=== PATIENT | female | born 1960 | race Caucasian/White ===

== ENCOUNTER 2019-09-09 11:55 | Outpatient (CLI) | payer MEDICAID | END 2019-09-09 23:59 | disposition home or self-care (01) | LOC: LAB.R 11:55 | PROVIDERS: ATTEND Physician Assistant Medical | DX: R10.9 Unspecified abdominal pain (principal) | CPT/HCPCS: 87086 ==

== ENCOUNTER 2019-09-19 07:36 | Outpatient (CLI) | payer MEDICAID ==
[2019-09-19 07:53] LABS: BASOPHILS % (AUTO) 0.6 %; EOSINOPHILS % (AUTO) 0.6 %; HGB - HEMOGLOBIN 15.3 g/dL (12.0-16.0); LYMPHOCYTES # (AUTO) 2.2 10^3/uL (1.5-3.5); LYMPHOCYTES % (AUTO) 35.3 %; MEAN CORPUSCULAR HGB CONC 32.9 g/dL (32.0-36.0); MEAN CORPUSCULAR VOLUME 88.1 fL (81.0-99.0); MEAN PLATELET VOLUME 9.5 fL (7.9-10.8); MONOCYTES # (AUTO) 0.4 10^3/uL (0.0-1.0); NEUTROPHILS # (AUTO) 3.5 10^3/uL (1.5-6.6); PLT - PLATELET COUNT 230 10^3/uL (130-450); RED BLOOD COUNT 5.28 10^6/uL (4.20-5.40); RED CELL DISTRIBUTION WIDTH 12.9 % (12.0-15.0); WHITE BLOOD COUNT 6.3 x10^3/uL (4.8-10.8)
[2019-09-19 08:09] LABS: ALBUMIN 4.6 g/dL (3.2-5.5); ALBUMIN/GLOBULIN RATIO 1.3 (1.0-2.2); ALKALINE PHOSPHATASE 61 IU/L (42-121); ALT ALANINE AMINOTRANSFERASE 60 IU/L (10-60); AST ASPARTATE AMINOTRANSFERASE 39 IU/L (10-42); BUN - BLOOD UREA NITROGEN 15 mg/dL (6-20); CALCIUM 9.4 mg/dL (8.5-10.3); CARBON DIOXIDE - CO2 27 mmol/L (21-32); CHLORIDE 102 mmol/L (101-111); CHOL/HDL RATIO 5.9 (<4.4); CHOLESTEROL 321 mg/dL; CREATININE 0.7 mg/dL (0.4-1.0); GLUCOSE 104 mg/dL (70-100); HDL CHOLESTEROL 54 mg/dL; LDL CHOLESTEROL,CALCULATED 221 mg/dL; LDL/HDL RATIO 4.1 (<4.4); SODIUM 136 mmol/L (135-145); TOTAL PROTEIN 8.2 g/dL (6.7-8.2); VLDL CHOLESTEROL 46 mg/dL
== END 2019-09-19 07:37 | disposition home or self-care (01) ==
LOC: LAB 07:36
PROVIDERS: ATTEND Physician Assistant Medical
DX: Z00.00 Encounter for general adult medical examination without abnormal findings (principal); E78.2 Mixed hyperlipidemia; R10.9 Unspecified abdominal pain
CPT/HCPCS: 36415; 80053; 80061; 83721; 84443; 85025; 87086

== ENCOUNTER 2019-09-27 09:39 | Outpatient (CLI) | payer MEDICAID ==
--- NOTE | 2019-09-28 16:00 | Ultrasound Report ---
Reason: DYSPHAGIA Procedure Date: 09/27/2019 Accession Number: [id number] / [id number] Procedure: US - Head or Neck Soft Tissue CPT Code: Final Report FULL RESULT: EXAM: THYROID ULTRASOUND EXAM DATE: 09/27/2019 09:41 AM. CLINICAL HISTORY: Dysphagia. Thyroid nodules. COMPARISON: HEAD OR NECK SOFT TISSUE 11/19/2015 3:59 PM. TECHNIQUE: Real time sonographic imaging of the thyroid was performed by the timber deadener. Multiple procurement representative static images were saved for review. FINDINGS: THYROID GLAND: Right Lobe: 4.6 x 1.2 x 1.4 cm, volume 4.0 cc. Right lobe echotexture appears heterogeneous with normal vascularity. Right Lobe Nodules: There are two 5 mm diameter well-circumscribed hypoechogenic foci one in the right upper pole and the other in the right lower pole, without hypervascularity or microcalcification. Left Lobe: 4.1 x 1.0 x 1.4 cm, volume 4.0 cc. Heterogeneous echotexture with normal vascularity. Left Lobe Nodules: There is a 6 mm left upper pole nodule which appears hypoechogenic and well-circumscribed. Isthmus: 0.5 cm AP. Normal background echotexture. Isthmic Nodules: None. LYMPH NODES: No adenopathy demonstrated in the central or lateral compartment. OTHER: There are slightly enlarged bilateral submandibular lymph nodes. IMPRESSION: 1. Nonspecific, small hypoechogenic nodules in the right and left lobes of the thyroid gland. 2. Mildly heterogeneous echotexture. Management recommendations are based on 2015 [place] [employer] Management Guidelines for Adult Patients with Thyroid Nodules and Differentiated Thyroid Cancer. RADIA
== END 2019-09-27 09:40 | disposition home or self-care (01) ==
LOC: DI 09:39
PROVIDERS: ATTEND Physician Assistant Medical
DX: E04.2 Nontoxic multinodular goiter (principal)
CPT/HCPCS: 76536

== ENCOUNTER 2019-10-07 08:00 | Outpatient (CLI) | payer MEDICAID | END 2019-10-07 23:59 | disposition home or self-care (01) | LOC: LAB.R 08:00 | PROVIDERS: ATTEND Physician Assistant Medical | DX: R10.9 Unspecified abdominal pain (principal) | CPT/HCPCS: 87086 ==

== ENCOUNTER 2019-11-22 15:19 | Outpatient (CLI) | payer MEDICAID ==
--- NOTE | 2019-11-22 17:12 | DEXA Report ---
Reason: POST MENOPAUSAL, R FLANK PAIN Procedure Date: 11/22/2019 Accession Number: [id number] / [id number] Procedure: DEX - Dexa Spine and/or Hip CPT Code: Final Report FULL RESULT: PROCEDURE: Dexa Spine and/or Hip INDICATIONS: POST MENOPAUSAL, R FLANK PAIN TECHNIQUE: Dual energy x-ray absorptiometry (DXA) was performed on a Edu[employer] System. Regions measured are the AP Spine, femoral neck, and if needed forearm. COMPARISON: None. FINDINGS: Lumbar Spine: Bone Mineral Density 1.247 g/cm/cm,T score 0.6, normal Left Hip: Bone Mineral Density 0.955 g/cm/cm,T score -0.4, normal Left Femoral Neck: Bone Mineral Density 0.982 g/cm/cm, T score -0.4, normal (T score greater or equal to -1.0: NORMAL) (T score from -1.1 to -2.4: OSTEOPENIA) (T score less than or equal to -2.5 to: OSTEOPOROSIS) Impression: 1. Normal bone mineral density. 2. No elevated fracture risk. Patients with diagnosis of osteoporosis or osteopenia should have regular bone mineral density assessment. For those eligible for Medicare, routine testing is allowed once every 2 years. Testing frequency can be increased for patients who have rapidly progressing disease or for those who are receiving medical therapy to restore bone mass. Reviewed by: Enedina Santiago MD on 11/22/2019 5:10 PM PDT Approved by: Enedina Santiago MD on 11/22/2019 5:10 PM PDT Station ID: [id number]
--- NOTE | 2019-11-22 17:28 | Ultrasound Report ---
PROCEDURE: Retroperitoneal INDICATIONS: POST MENOPAUSAL, R FLANK PAIN TECHNIQUE: Real-time scanning was performed of the retroperitoneal organs, with image documentation. COMPARISON: None. FINDINGS: Kidneys: Kidneys are normal in size. Right kidney measures 11.0 cm long; left kidney measures 10.3 cm long. Right renal cortical thickness is 1.1 cm; left renal cortical thickness is 1.0 cm. No diana d masses, hydronephrosis, or nephrolithiasis. Bilateral simple renal cysts are identified the larges t on the right measuring 15 x 15 x 13 mm, the largest on the left measuring 10 x 10 x 10 mm. Bladder: Prevoid volume 30 9 cc. Postvoid residual 22 cc. Bilateral ureteral jets are identified. No visualized bladder mass. IMPRESSION: No visualized nephrolithiasis. Bilateral renal cysts are noted. Reviewed by: Lilliana Middleton MD on 11/22/2019 5:27 PM PDT Approved by: Lilliana Middleton MD on 11/22/2019 5:27 PM PDT Station ID: [id number]
== END 2019-11-22 15:20 | disposition home or self-care (01) ==
LOC: DI 15:19
PROVIDERS: ATTEND Physician Assistant Medical
DX: Z78.0 Asymptomatic menopausal state (principal); R10.9 Unspecified abdominal pain; N28.1 Cyst of kidney, acquired
CPT/HCPCS: 76770; 77080

== ENCOUNTER 2020-01-10 10:37 | Outpatient (CLI) | payer MEDICAID ==
[2020-01-10 11:08] LABS: ALBUMIN 4.5 g/dL (3.2-5.5); ALBUMIN/GLOBULIN RATIO 1.3 (1.0-2.2); ALKALINE PHOSPHATASE 66 IU/L (42-121); ALT ALANINE AMINOTRANSFERASE 53 IU/L (10-60); AST ASPARTATE AMINOTRANSFERASE 39 IU/L (10-42); BILIRUBIN,TOTAL 0.6 mg/dL (0.2-1.0); BUN - BLOOD UREA NITROGEN 19 mg/dL (6-20); CALCIUM 9.2 mg/dL (8.5-10.3); CARBON DIOXIDE - CO2 29 mmol/L (21-32); CHLORIDE 99 mmol/L (101-111); CHOL/HDL RATIO 4.2 (<4.4); CHOLESTEROL 237 mg/dL; CREATININE 0.7 mg/dL (0.4-1.0); GLUCOSE 100 mg/dL (70-100); HDL CHOLESTEROL 57 mg/dL; LDL CHOLESTEROL,CALCULATED 151 mg/dL; LDL/HDL RATIO 2.6 (<4.4); SODIUM 134 mmol/L (135-145); VLDL CHOLESTEROL 29 mg/dL
== END 2020-01-10 10:38 | disposition home or self-care (01) ==
LOC: LAB 10:37
PROVIDERS: ATTEND Physician Assistant Medical
DX: E78.2 Mixed hyperlipidemia (principal)
CPT/HCPCS: 36415; 80053; 80061; 83721

== ENCOUNTER 2020-02-17 08:00 | Outpatient (CLI) | payer MEDICAID ==
--- NOTE | 2020-02-18 17:05 | XRAY Report ---
PROCEDURE: Sacrum/Coccyx INDICATIONS: TAILBONE PAIN TECHNIQUE: 3 views of the sacrum and coccyx acquired. COMPARISON: None. FINDINGS: Bones: No fractures or dislocations. No suspicious bony lesions. Soft tissues: Visualized bowel gas pattern is normal. No suspicious soft tissue densities. IMPRESSION: Sacrum/coccyx without acute radiographic abnormalities. Reviewed by: Dalton Montana MD on 02/18/2020 5:04 PM PDT Approved by: Dalton Montana MD on 02/18/2020 5:04 PM PDT Station ID: [id number]
== END 2020-02-17 23:59 | disposition home or self-care (01) ==
LOC: DI.S 08:00
PROVIDERS: ATTEND Physician Assistant Medical
DX: M53.3 Sacrococcygeal disorders, not elsewhere classified (principal)
CPT/HCPCS: 72220

== ENCOUNTER 2020-04-09 21:21 | Outpatient (CLI) | payer MEDICAID | END 2020-04-09 21:22 | disposition home or self-care (01) | LOC: COV 21:21 | PROVIDERS: ATTEND Surgery | DX: Z01.812 Encounter for preprocedural laboratory examination (principal); Z86.010 Personal history of colon polyps; R09.89 Other specified symptoms and signs involving the circulatory and respiratory systems; Z20.828 Contact with and (suspected) exposure to other viral communicable diseases ==

== ENCOUNTER 2020-04-13 11:12 | Day surgery (SDC) | payer MEDICAID ==
[2020-04-13] MEDS ORDERED: LACTATED RINGERS 1,000 ML IV ONE (11:18)
[2020-04-13] MEDS ORDERED: LIDO GARGLE 30 ML BOTTLE ONE (12:53)
[2020-04-13] MEDS ORDERED: BENZOCAINE/TETRACAINE/BUTAMBEN 20 GM ONE (12:53)
[2020-04-13] MEDS ORDERED: LIDO GARGLE 30 ML BOTTLE PO ONE (12:57)
[2020-04-13] MEDS ORDERED: BENZOCAINE/TETRACAINE/BUTAMBEN 20 GM TOP ONE (12:59)
[2020-04-13] MEDS ORDERED: fentaNYL 250 MCG/5 ML VIAL IVP ONE (13:03)
[2020-04-13] MEDS ORDERED: MIDAZOLAM 2 MG/2 ML VIAL IVP ONE (13:03)
[2020-04-13] MEDS ORDERED: LACTATED RINGERS 100 ML IV ONE (14:00)
[2020-04-13 14:53] VITALS: BP 119/76
== END 2020-04-13 11:13 | disposition home or self-care (01) ==
LOC: SDS 11:12
PROVIDERS: ATTEND Internal Medicine Gastroenterology
PROC: 0DBC8ZZ Excision of Ileocecal Valve, Via Natural or Artificial Opening Endoscopic (ICD-10-PCS; principal; 2020-04-13 12:15)
PROC: 0DB98ZZ Excision of Duodenum, Via Natural or Artificial Opening Endoscopic (ICD-10-PCS; 2020-04-13 12:15)
DX: Z12.11 Encounter for screening for malignant neoplasm of colon (principal); R13.10 Dysphagia, unspecified; K31.7 Polyp of stomach and duodenum; K63.89 Other specified diseases of intestine; K62.89 Other specified diseases of anus and rectum; E78.00 Pure hypercholesterolemia, unspecified; B00.9 Herpesviral infection, unspecified; Z86.010 Personal history of colon polyps; Z79.82 Long term (current) use of aspirin; Z79.899 Other long term (current) drug therapy

== ENCOUNTER 2020-05-04 07:00 | Outpatient (CLI) | payer MEDICAID | END 2020-05-04 23:59 | disposition home or self-care (01) | LOC: LAB.R 07:00 | PROVIDERS: ATTEND Physician Assistant Medical | DX: R39.15 Urgency of urination (principal) | CPT/HCPCS: 87086 ==

== ENCOUNTER 2020-05-28 08:00 | Outpatient (CLI) | payer MEDICAID | END 2020-05-28 23:59 | disposition home or self-care (01) | LOC: LAB.R 08:00 | PROVIDERS: ATTEND Physician Assistant Medical | DX: N39.0 Urinary tract infection, site not specified (principal) | CPT/HCPCS: 87086 ==

== ENCOUNTER 2020-07-21 15:06 | Outpatient (CLI) | payer MEDICAID ==
--- NOTE | 2020-07-21 16:53 | XRAY Report ---
PROCEDURE: Knee Standing BILAT INDICATIONS: KNEE PAIN,BILATERAL (STANDING) TECHNIQUE: 3 views of the right knee, and 3 views of the left knee. COMPARISON: None. FINDINGS: Bones: No acute fractures or dislocations. Tricompartmental osteoarthritic changes of the bilateral knee with small marginal osteophyte formation. There is mild medial compartment joint space narrowin g more pronounced on the right. No suspicious bony lesions. Soft tissues: No knee joint effusions. No suspicious soft tissue calcification. IMPRESSION: Bilateral knee without acute fracture or dislocation. Tricompartmental osteoarthrosis of the bilateral knee with mild medial compartment joint space narrow ing seen on weightbearing views. Findings are slightly more pronounced on the right. Reviewed by: Dalton Montana MD on 07/21/2020 4:51 PM PDT Approved by: Dalton Montana MD on 07/21/2020 4:51 PM PDT Station ID: [id number]
== END 2020-07-21 15:07 | disposition home or self-care (01) ==
LOC: DI 15:06
PROVIDERS: ATTEND Physician Assistant Medical
DX: M25.561 Pain in right knee (principal); M25.562 Pain in left knee; M17.0 Bilateral primary osteoarthritis of knee

== ENCOUNTER 2020-10-11 08:08 | Outpatient (CLI) | payer MEDICAID ==
--- NOTE | 2020-10-11 13:34 | Ultrasound Report ---
PROCEDURE: Ext Limited Non Vascular INDICATIONS: MASS OF SOFT TISSUE OF RIGHT ARM TECHNIQUE: Real-time scanning was performed of the area of current clinical concern anterior right s houlder soft tissues, with image documentation. COMPARISON: None. FINDINGS: There is a 2.1 x 0.9 x 5.4 cm isoechoic to fat delineated border that appears compressible and pliable in the area of current clinical concern. The appearance sonographically is that of a richard ign lipoma. IMPRESSION: Apparent lipoma exactly in the area of current clinical concern measuring up to 2.1 x 0. 9 x 5.4 cm. If clinical concerns persist or increase follow-up by contrast-enhanced MR scanning may b e warranted to more accurately assess this structure. Reviewed by: Nestor Carmona MD on 10/11/2020 12:33 PM SILVIA Approved by: Nestor Carmona MD on 10/11/2020 12:33 PM SILVIA Station ID: [id number]
== END 2020-10-11 08:09 | disposition home or self-care (01) ==
LOC: DI 08:08
PROVIDERS: ATTEND Physician Assistant Medical
DX: R93.6 Abnormal findings on diagnostic imaging of limbs (principal); R93.89 Abnormal findings on diagnostic imaging of other specified body structures

== ENCOUNTER 2020-12-04 08:01 | Outpatient (CLI) | payer MEDICAID ==
--- NOTE | 2020-12-07 14:22 | Mammography Report ---
BILATERAL DIGITAL SCREENING MAMMOGRAM 3D/2D: 12/04/2020 CLINICAL: Routine screening. Comparison is made to exams dated: 10/21/2019 mammogram, 11/19/2015 mammogram, 10/08/2014 mammogram, and 03/16/2013 mammogram - [facility]. There are scattered fibroglandular elements in both breasts. No significant masses, calcifications, or other findings are seen in either breast. There has been no significant interval change. IMPRESSION: NEGATIVE There is no mammographic evidence of malignancy. A 1 year screening mammogram is recommended. This exam was interpreted at Station ID: [id number]. NOTE: For mammograms, a report in lay terms will be sent to the patient. Approximately 15% of breast malignancies will not be visualized mammographically. In the management of a palpable breast mass, a negative mammogram must not discourage biopsy of a clinically suspicious lesion. Electronically Signed By: Lux Cid M.D. slc/penrad:12/04/2020 14:26:39 ACR BI-RADS Category 1: Negative 3341F PARENCHYMAL PATTERN: (A) - The breast(s) demonstrate(s) scattered fibroglandular densities. BI-RADS CATEGORY: (1) - 1 RECOMMENDATION: (ANNUAL) - Recommend routine annual screening mammography. [id number] 1 year screening LATERALITY: (B)
== END 2020-12-04 08:02 | disposition home or self-care (01) ==
LOC: DI 08:01
DX: Z12.31 Encounter for screening mammogram for malignant neoplasm of breast (principal)

== ENCOUNTER 2020-12-11 09:12 | Outpatient (CLI) | payer MEDICAID ==
[2020-12-11 09:29] LABS: BASOPHILS % (AUTO) 0.7 %; EOSINOPHILS # (AUTO) 0.1 10^3/uL (0.0-0.7); EOSINOPHILS % (AUTO) 0.9 %; LYMPHOCYTES % (AUTO) 34.6 %; MEAN CORPUSCULAR HEMOGLOBIN 29.2 pg (27.0-31.0); MEAN CORPUSCULAR HGB CONC 33.3 g/dL (32.0-36.0); MEAN CORPUSCULAR VOLUME 87.5 fL (81.0-99.0); MEAN PLATELET VOLUME 9.7 fL (7.9-10.8); MONOCYTES # (AUTO) 0.4 10^3/uL (0.0-1.0); MONOCYTES % (AUTO) 7.4 %; NEUTROPHILS # (AUTO) 3.2 10^3/uL (1.5-6.6); NEUTROPHILS % (AUTO) 56.2 %; PLT - PLATELET COUNT 206 10^3/uL (130-450); WHITE BLOOD COUNT 5.7 x10^3/uL (4.8-10.8)
[2020-12-11 09:31] LABS: BILIRUBIN,URINE NEGATIVE (NEGATIVE); GLUCOSE, URINE (UA) NEGATIVE (NEGATIVE); KETONES,URINE (UA) NEGATIVE (NEGATIVE); LEUKOCYTE ESTERASE, URINE TRACE (NEGATIVE); NITRITE,URINE NEGATIVE (NEGATIVE); OCCULT BLOOD,URINE NEGATIVE (NEGATIVE); PH,URINE 5.5 PH (5.0-7.5); PROTEIN,URINE NEGATIVE (NEGATIVE); UROBILINOGEN,URINE 0.2 (NORMAL) E.U./dL (NORMAL)
[2020-12-11 09:46] LABS: BACTERIA,URINE Rare /HPF (None Seen); CLARITY,URINE CLEAR (CLEAR); RBC,URINE None Seen /HPF (0-5); SQUAMOUS EPITHELIAL CELL,UR FEW Squamous (<= Few)
[2020-12-11 09:53] LABS: ALBUMIN 4.8 g/dL (3.2-5.5); ALBUMIN/GLOBULIN RATIO 1.5 (1.0-2.2); ALKALINE PHOSPHATASE 59 IU/L (42-121); ALT ALANINE AMINOTRANSFERASE 46 IU/L (10-60); AST ASPARTATE AMINOTRANSFERASE 32 IU/L (10-42); BILIRUBIN,TOTAL 0.9 mg/dL (0.2-1.0); BUN - BLOOD UREA NITROGEN 21 mg/dL (6-20); CALCIUM 9.4 mg/dL (8.5-10.3); CARBON DIOXIDE - CO2 27 mmol/L (21-32); CHLORIDE 105 mmol/L (101-111); CHOL/HDL RATIO 4.2 (<4.4); CHOLESTEROL 249 mg/dL; CREATININE 0.6 mg/dL (0.4-1.0); GFR - MDRD 101 (>89); GLUCOSE 113 mg/dL (70-100); HDL CHOLESTEROL 59 mg/dL; LDL CHOLESTEROL,CALCULATED 160 mg/dL; LDL/HDL RATIO 2.7 (<4.4); POTASSIUM 3.8 mmol/L (3.5-5.0); SODIUM 139 mmol/L (135-145); TOTAL PROTEIN 7.9 g/dL (6.7-8.2); TRIGLYCERIDES 149 mg/dL; VLDL CHOLESTEROL 30 mg/dL
[2020-12-11 10:04] LABS: THYROID STIMULATING HORMONE 4.01 uIU/mL (0.34-5.60)
[2020-12-11 11:06] LABS: ESTIMATED AVERAGE GLUCOSE 117 mg/dL (70-100); HEMOGLOBIN A1c% 5.7 % (4.27-6.07)
== END 2020-12-11 09:13 | disposition home or self-care (01) ==
LOC: LAB 09:12
PROVIDERS: ATTEND Family Medicine
DX: Z00.00 Encounter for general adult medical examination without abnormal findings (principal); E78.2 Mixed hyperlipidemia; N39.0 Urinary tract infection, site not specified; R73.01 Impaired fasting glucose
CPT/HCPCS: 36415; 80053; 80061; 81001; 83036; 83721; 84443; 85025; 87086

== ENCOUNTER 2021-04-08 08:04 | Outpatient (CLI) | payer MEDICAID ==
[2021-04-08 08:46] LABS: ALBUMIN 4.5 g/dL (3.2-5.5); ALBUMIN/GLOBULIN RATIO 1.3 (1.0-2.2); ALKALINE PHOSPHATASE 61 IU/L (42-121); ALT ALANINE AMINOTRANSFERASE 46 IU/L (10-60); AST ASPARTATE AMINOTRANSFERASE 33 IU/L (10-42); BILIRUBIN,TOTAL 0.7 mg/dL (0.2-1.0); BUN - BLOOD UREA NITROGEN 17 mg/dL (6-20); CALCIUM 9.4 mg/dL (8.5-10.3); CARBON DIOXIDE - CO2 28 mmol/L (21-32); CHLORIDE 103 mmol/L (101-111); CHOL/HDL RATIO 3.9 (<4.4); CHOLESTEROL 219 mg/dL; CREATININE 0.6 mg/dL (0.4-1.0); GFR - MDRD 101 (>89); GLUCOSE 100 mg/dL (70-100); HDL CHOLESTEROL 56 mg/dL; LDL CHOLESTEROL,CALCULATED 133 mg/dL; LDL/HDL RATIO 2.4 (<4.4); POTASSIUM 4.2 mmol/L (3.5-5.0); SODIUM 138 mmol/L (135-145); TOTAL PROTEIN 7.9 g/dL (6.7-8.2); TRIGLYCERIDES 148 mg/dL; VLDL CHOLESTEROL 30 mg/dL
[2021-04-08 08:52] LABS: ESTIMATED AVERAGE GLUCOSE 117 mg/dL (70-100); HEMOGLOBIN A1c% 5.7 % (4.27-6.07)
== END 2021-04-08 08:05 | disposition home or self-care (01) ==
LOC: LAB 08:04
PROVIDERS: ATTEND Physician Assistant Medical
DX: E78.2 Mixed hyperlipidemia (principal); R73.01 Impaired fasting glucose
CPT/HCPCS: 36415; 80053; 80061; 83036; 83721

== ENCOUNTER 2021-04-13 08:00 | Outpatient (CLI) | payer MEDICAID | END 2021-04-13 23:59 | disposition home or self-care (01) | LOC: LAB.WCP 08:00 | PROVIDERS: ATTEND Physician Assistant Medical | DX: R35.0 Frequency of micturition (principal) | CPT/HCPCS: 87086 ==

== ENCOUNTER 2022-07-28 08:13 | Outpatient (CLI) | payer MEDICAID ==
[2022-07-28 08:31] LABS: BASOPHILS % (AUTO) 0.7 %; EOSINOPHILS # (AUTO) 0.1 10^3/uL (0.0-0.7); EOSINOPHILS % (AUTO) 0.8 %; HCT - HEMATOCRIT 42.8 % (37.0-47.0); HGB - HEMOGLOBIN 13.8 g/dL (12.0-16.0); LYMPHOCYTES # (AUTO) 2.5 10^3/uL (1.5-3.5); LYMPHOCYTES % (AUTO) 41.2 %; MEAN CORPUSCULAR HEMOGLOBIN 28.5 pg (27.0-31.0); MEAN CORPUSCULAR HGB CONC 32.2 g/dL (32.0-36.0); MEAN CORPUSCULAR VOLUME 88.2 fL (81.0-99.0); MEAN PLATELET VOLUME 9.6 fL (7.9-10.8); MONOCYTES # (AUTO) 0.4 10^3/uL (0.0-1.0); MONOCYTES % (AUTO) 7.2 %; NEUTROPHILS % (AUTO) 49.9 %; PLT - PLATELET COUNT 191 10^3/uL (130-450); RED BLOOD COUNT 4.85 10^6/uL (4.20-5.40); RED CELL DISTRIBUTION WIDTH 13.1 % (12.0-15.0)
[2022-07-28 08:51] LABS: ALBUMIN 4.3 g/dL (3.2-5.5); ALBUMIN/GLOBULIN RATIO 1.3 (1.0-2.2); ALKALINE PHOSPHATASE 57 IU/L (42-121); ALT ALANINE AMINOTRANSFERASE 58 IU/L (10-60); AST ASPARTATE AMINOTRANSFERASE 44 IU/L (10-42); BILIRUBIN,TOTAL 0.5 mg/dL (0.2-1.0); BUN - BLOOD UREA NITROGEN 14 mg/dL (6-20); CALCIUM 8.9 mg/dL (8.5-10.3); CARBON DIOXIDE - CO2 27 mmol/L (21-32); CHLORIDE 104 mmol/L (101-111); CHOL/HDL RATIO 3.9 (<4.4); CHOLESTEROL 209 mg/dL; CREATININE 0.6 mg/dL (0.4-1.0); GFR - MDRD 101 (>89); GLUCOSE 107 mg/dL (70-100); HDL CHOLESTEROL 53 mg/dL; LDL CHOLESTEROL,CALCULATED 130 mg/dL; LDL/HDL RATIO 2.5 (<4.4); POTASSIUM 4.1 mmol/L (3.5-5.0); SODIUM 139 mmol/L (135-145); TOTAL PROTEIN 7.6 g/dL (6.7-8.2); TRIGLYCERIDES 132 mg/dL; VLDL CHOLESTEROL 26 mg/dL
[2022-07-28 09:00] LABS: THYROID STIMULATING HORMONE 5.08 uIU/mL (0.34-5.60)
== END 2022-07-28 08:14 | disposition home or self-care (01) ==
LOC: LAB 08:13
PROVIDERS: ATTEND Physician Assistant Medical
DX: Z00.00 Encounter for general adult medical examination without abnormal findings (principal); E78.2 Mixed hyperlipidemia
CPT/HCPCS: 36415; 80053; 80061; 83721; 84443; 85025

== ENCOUNTER 2022-08-24 15:07 | Outpatient (CLI) | payer MEDICAID ==
--- NOTE | 2022-08-26 10:34 | Mammography Report ---
BILATERAL DIGITAL SCREENING MAMMOGRAM 3D/2D: 08/24/2022 CLINICAL: Routine screening. Comparison is made to exams dated: 10/21/2019 mammogram, 12/04/2020 mammogram, 11/19/2015 mammogram, 10/08/2014 mammogram, and 03/16/2013 mammogram - [facility]. There are scattered areas of fibroglandular density in both breasts (category b / 25%-50% glandular t issue). No significant masses, calcifications, or other findings are seen in either breast. There has been no significant interval change. IMPRESSION: NEGATIVE There is no mammographic evidence of malignancy. A 1 year screening mammogram is recommended. Based on the Tyrer Cuzick model (a risk assessment model) the patients lifetime risk is 6.6% and her 10 year risk is 3.0%. According to the ACR, ACS, and NCCN guidelines, an annual breast MRI exam miguel g with mammogram is recommended if the patients lifetime risk is 20% or greater. This exam was interpreted at Station ID: [id number]. NOTE: For mammograms, a report in lay terms will be sent to the patient. Approximately 15% of breast malignancies will not be visualized mammographically. In the management of a palpable breast mass, a negative mammogram must not discourage biopsy of a clinically suspicious lesion. Electronically Signed By: Enedina bauer/pamela:08/25/2022 12:26:43 letter sent: No_Letter ACR BI-RADS Category 1: Negative 3341F PARENCHYMAL PATTERN: (A) - The breast(s) demonstrate(s) scattered fibroglandular densities. BI-RADS CATEGORY: (1) - 1 Mammogram [id number] 1 year screening LATERALITY: (B)
== END 2022-08-24 15:08 | disposition home or self-care (01) ==
LOC: DI 15:07
DX: Z12.31 Encounter for screening mammogram for malignant neoplasm of breast (principal)

== ENCOUNTER 2023-02-14 08:00 | Outpatient (CLI) | payer MEDICAID ==
--- NOTE | 2023-02-14 16:30 | XRAY Report ---
PROCEDURE: Shoulder 3 View RT INDICATIONS: PAIN IN RIGHT SHOULDER TECHNIQUE: 3 views of the shoulder were acquired. COMPARISON: None. FINDINGS: Bones: No fractures or dislocations. No suspicious bony lesions. Visualized ribs appear intact. Moderate acromioclavicular joint space narrowing with osteophytosis. Soft tissues: No suspicious soft tissue calcifications. The visualized lungs are within normal limi ts. IMPRESSION: Moderate acromioclavicular osteoarthritis. Reviewed by: Joe Powell on 02/14/2023 4:29 PM PDT Approved by: Joe Powell on 02/14/2023 4:29 PM PDT Station ID: [id number]
== END 2023-02-14 23:59 | disposition home or self-care (01) ==
LOC: DI.S 08:00
PROVIDERS: ATTEND Emergency Medicine
DX: M19.011 Primary osteoarthritis, right shoulder (principal)

== ENCOUNTER 2023-05-11 08:00 | Outpatient (CLI) | payer MEDICAID | END 2023-05-11 23:59 | disposition home or self-care (01) | LOC: LAB.WCP 08:00 | PROVIDERS: ATTEND Physician Assistant Medical | DX: N39.0 Urinary tract infection, site not specified (principal) | CPT/HCPCS: 87086 ==

== ENCOUNTER 2023-06-05 08:00 | Outpatient (CLI) | payer MEDICAID | END 2023-06-05 23:59 | disposition home or self-care (01) | LOC: LAB.WCP 08:00 | PROVIDERS: ATTEND Physician Assistant Medical | DX: R35.0 Frequency of micturition (principal) | CPT/HCPCS: 87086 ==

== ENCOUNTER 2023-08-01 09:09 | Outpatient (CLI) | payer OTHER, MEDICAID | END 2023-08-01 23:59 | disposition EMS.NT | LOC: EMS 09:09 | DX: Z04.1 Encounter for examination and observation following transport accident (principal) ==

== ENCOUNTER 2023-08-02 14:50 | Emergency (ER) | payer OTHER, MEDICAID ==
[2023-08-02 15:15] VITALS: O2SAT 98
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
[2023-08-02] MEDS: ACETAMINOPHEN 500 MG TABLET PO STA (16:17)
[2023-08-02] MEDS: MELOXICAM 7.5 MG TABLET PO STA (16:17)
--- NOTE | 2023-08-02 16:19 | CT Report ---
PROCEDURE: Cervical Spine WO INDICATIONS: neck inj TECHNIQUE: Noncontrast 3 mm thick sections acquired from the skull base to the T4 level. Sagittal and coronal r eformats were then constructed. For radiation dose reduction, the following was used: automated exp osure control, adjustment of mA and/or kV according to patient size. COMPARISON: None. FINDINGS: Image quality: Excellent. Bones: No fractures or dislocations. Visualized superior ribs are intact. Cervical spondylitic cho ge is present, centered at C5-C6, where there is prominent central posterior disc osteophyte complex resulting in severe canal stenosis. Soft tissues: Prevertebral soft tissues are normal in thickness. No paravertebral hematomas. No ap ical pneumothoraces. IMPRESSION: 1. No acute cervical fracture or dislocation. 2. Cervical spondylosis. Disc osteophyte complex at C5-C6 results in severe canal stenosis. Reviewed by: Rafael Saeed MD on 08/02/2023 4:17 PM PDT Approved by: Rafael Saeed MD on 08/02/2023 4:17 PM PDT Station ID: [id number]
--- NOTE | 2023-08-02 16:40 | XRAY Report ---
PROCEDURE: Chest 2V INDICATIONS: chest inj TECHNIQUE: 2 views of the chest were acquired. COMPARISON: None. FINDINGS: Surgical changes and devices: None. Lungs and pleura: No pleural effusions or pneumothorax. Lungs are clear. Mediastinum: Mediastinal contours appear normal. Heart size is normal. Bones and chest wall: No suspicious bony lesions. Overlying soft tissues appear unremarkable. IMPRESSION: No acute cardiopulmonary process. Reviewed by: Lilliana Middleton MD on 08/02/2023 4:38 PM PDT Approved by: Lilliana Middleton MD on 08/02/2023 4:38 PM PDT Station ID: [id number]
[2023-08-02 16:56] VITALS: BP 135/83
--- NOTE | 2023-08-02 16:57 | XRAY Report ---
PROCEDURE: Foot 3+V RT INDICATIONS: foot inj TECHNIQUE: 3 views of the foot were acquired. COMPARISON: None. FINDINGS: Bones: No fractures or dislocations. Mild to moderate and hindfoot joint osteoarthritic changes are seen. No suspicious bony lesions. Well-defined plantar calcaneal enthesophyte is seen. Soft tissues: No tibiotalar joint effusion. Achilles tendon appears normal. IMPRESSION: No acute fracture or dislocation. Right foot osteoarthritis. Reviewed by: Abhinav Rodrigues MD on 08/02/2023 4:56 PM PDT Approved by: Abhinav Rodrigues MD on 08/02/2023 4:56 PM PDT Station ID: [id number]
== END 2023-08-02 16:57 | disposition home or self-care (01) ==
LOC: ED 14:50
DX: S19.9XXA Unspecified injury of neck, initial encounter (principal); M79.671 Pain in right foot; V43.52XA Car driver injured in collision with other type car in traffic accident, initial encounter; I10 Essential (primary) hypertension
CPT/HCPCS: 71046; 72125; 73630; 99283; 99284; A9270

== ENCOUNTER 2023-08-28 14:43 | Outpatient (CLI) | payer OTHER ==
--- NOTE | 2023-08-28 23:43 | XRAY Report ---
PROCEDURE: Shoulder 2+V RT INDICATIONS: RIGHT SHOULDER PAIN TECHNIQUE: 3 views of the shoulder were acquired. COMPARISON: None FINDINGS: Bones: No fractures or dislocations. No suspicious bony lesions. Visualized ribs appear intact. Soft tissues: No suspicious soft tissue calcifications. IMPRESSION: Unremarkable shoulder radiographs Reviewed by: Terrell Teixeira MD on 08/28/2023 10:42 PM AKDT Approved by: Terrell Teixeira MD on 08/28/2023 10:42 PM AKDT Station ID: [id number]
--- NOTE | 2023-08-28 23:45 | XRAY Report ---
PROCEDURE: Lumbar Spine 2-3V INDICATIONS: LOW BACK PAIN TECHNIQUE: 3 view(s) of the lumbar spine were acquired. COMPARISON: None. FINDINGS: Bones: Vertebral body height and alignment is maintained. No suspicious bony lesions. Soft tissues: Overlying bowel gas pattern is normal. No suspicious soft tissue calcifications. IMPRESSION: Unremarkable lumbar spine radiographs. No fracture Reviewed by: Terrell Teixeira MD on 08/28/2023 10:44 PM AKDT Approved by: Terrell Teixeira MD on 08/28/2023 10:44 PM AKDT Station ID: [id number]
== END 2023-08-28 14:44 | disposition home or self-care (01) ==
LOC: DI 14:43
PROVIDERS: ATTEND Physician Assistant Medical
DX: M25.511 Pain in right shoulder (principal); M54.50 Low back pain, unspecified

== ENCOUNTER 2023-09-27 08:33 | Outpatient (CLI) | payer MEDICARE ==
[2023-09-27 08:57] LABS: BASOPHILS % (AUTO) 0.6 %; EOSINOPHILS # (AUTO) 0.1 10^3/uL (0.0-0.7); EOSINOPHILS % (AUTO) 1.1 %; HCT - HEMATOCRIT 39.4 % (37.0-47.0); HGB - HEMOGLOBIN 13.3 g/dL (12.0-16.0); LYMPHOCYTES # (AUTO) 2.2 10^3/uL (1.5-3.5); LYMPHOCYTES % (AUTO) 42.4 %; MEAN CORPUSCULAR HEMOGLOBIN 29.6 pg (27.0-31.0); MEAN CORPUSCULAR HGB CONC 33.8 g/dL (32.0-36.0); MEAN CORPUSCULAR VOLUME 87.6 fL (81.0-99.0); MEAN PLATELET VOLUME 9.5 fL (7.9-10.8); MONOCYTES # (AUTO) 0.4 10^3/uL (0.0-1.0); MONOCYTES % (AUTO) 7.4 %; NEUTROPHILS # (AUTO) 2.6 10^3/uL (1.5-6.6); NEUTROPHILS % (AUTO) 48.3 %; PLT - PLATELET COUNT 211 10^3/uL (130-450); RED CELL DISTRIBUTION WIDTH 13.2 % (12.0-15.0); WHITE BLOOD COUNT 5.3 x10^3/uL (4.8-10.8)
[2023-09-27 09:11] LABS: ALBUMIN 4.4 g/dL (3.2-5.5); ALBUMIN/GLOBULIN RATIO 1.6 (1.0-2.2); ALKALINE PHOSPHATASE 46 IU/L (42-121); ALT ALANINE AMINOTRANSFERASE 34 IU/L (10-60); AST ASPARTATE AMINOTRANSFERASE 26 IU/L (10-42); BILIRUBIN,TOTAL 0.5 mg/dL (0.2-1.0); BUN - BLOOD UREA NITROGEN 17 mg/dL (6-20); CALCIUM 9.5 mg/dL (8.5-10.3); CARBON DIOXIDE - CO2 30 mmol/L (21-32); CHLORIDE 104 mmol/L (101-111); CHOL/HDL RATIO 3.9 (<4.4); CHOLESTEROL 197 mg/dL; CREATININE 0.6 mg/dL (0.6-1.3); GFR - MDRD 100 (>89); GLUCOSE 100 mg/dL (74-104); HDL CHOLESTEROL 50 mg/dL; LDL CHOLESTEROL,CALCULATED 108 mg/dL; LDL/HDL RATIO 2.2 (<4.4); POTASSIUM 4.1 mmol/L (3.5-4.5); SODIUM 138 mmol/L (135-145); TOTAL PROTEIN 7.2 g/dL (6.4-8.9); TRIGLYCERIDES 196 mg/dL (48-352); VLDL CHOLESTEROL 39 mg/dL
== END 2023-09-27 08:34 | disposition home or self-care (01) ==
LOC: LAB 08:33
PROVIDERS: ATTEND Physician Assistant Medical
DX: E78.2 Mixed hyperlipidemia (principal); E01.0 Iodine-deficiency related diffuse (endemic) goiter; I10 Essential (primary) hypertension
CPT/HCPCS: 36415; 80053; 80061; 83721; 84443; 85025

== ENCOUNTER 2023-10-19 08:52 | Outpatient (CLI) | payer MEDICARE ==
--- NOTE | 2023-10-20 10:58 | Mammography Report ---
BILATERAL DIGITAL SCREENING MAMMOGRAM 3D/2D: 10/19/2023 CLINICAL: Routine screening. Comparison is made to exams dated: 08/24/2022 mammogram, 12/04/2020 mammogram, 10/21/2019 mammogram, an d 11/19/2015 mammogram - [facility]. There are scattered areas of fibroglandular density in both breasts (category b / 25%-50% glandular t issue). No significant masses, calcifications, or other findings are seen in either breast. There has been no significant interval change. IMPRESSION: NEGATIVE There is no mammographic evidence of malignancy. A 1 year screening mammogram is recommended. Based on the Tyrer Cuzick model (a risk assessment model) the patient's lifetime risk is 5.6% and her 10 year risk is 2.7%. According to the ACR, ACS, and NCCN guidelines, an annual breast MRI exam miguel g with mammogram is recommended if the patient's lifetime risk is 20% or greater. This exam was interpreted at Station ID: [id number]. NOTE: For mammograms, a report in lay terms will be sent to the patient. Approximately 15% of breast malignancies will not be visualized mammographically. In the management of a palpable breast mass, a negative mammogram must not discourage biopsy of a clinically suspicious lesion. Electronically Signed By: Lux quezada/pamela:10/19/2023 16:47:41 letter sent: No_Letter ACR BI-RADS Category 1: Negative 3341F PARENCHYMAL PATTERN: (A) - The breast(s) demonstrate(s) scattered fibroglandular densities. BI-RADS CATEGORY: (1) - 1 RECOMMENDATION: (ANNUAL) - Recommend routine annual screening mammography. [id number] 1 year screening LATERALITY: (B)
== END 2023-10-19 08:53 | disposition home or self-care (01) ==
LOC: DI 08:52
DX: Z12.31 Encounter for screening mammogram for malignant neoplasm of breast (principal); R92.323 Mammographic fibroglandular density, bilateral breasts

== ENCOUNTER 2024-01-10 09:47 | Outpatient (CLI) | payer OTHER, MEDICARE ==
--- NOTE | 2024-01-10 16:11 | MRI Report ---
Lumbar Spine WO Clinical History: 63 years of age, Female, LOW BACK PAIN, NECK PAIN. Comparison: No priors available Technique: Multiplanar multisequence lumbar spine MRI without contrast was performed. Findings: Prior surgery: None. Vertebral bodies: Vertebral body heights are maintained. Alignment: Mild retrolisthesis of L3 on L4. Bone marrow: Unremarkable for age. Intervertebral discs: Multilevel disc bulge and disc desiccation. The conus medullaris is normal in contour, signal intensity, and location. The tip of the conus is at L1-L2. The following axial levels are detailed below: T11-T12: Mild bilateral facet arthropathy. No central canal stenosis. No neuroforaminal stenosis. T12-L1: [Central disc protrusion. Mild bilateral facet arthropathy. No central canal stenosis. No rig ht neuroforaminal stenosis. No left neuroforaminal stenosis. L1-L2: Mild bilateral facet arthropathy. No central canal stenosis. No right neuroforaminal stenosis. No left neuroforaminal stenosis. L2-L3: Mild bilateral facet arthropathy. No central canal stenosis. No right neuroforaminal stenosis. No left neuroforaminal stenosis. L3-L4: Moderate bilateral facet arthropathy. No central canal stenosis. No right neuroforaminal steno sis. No left neuroforaminal stenosis. L4-L5: Moderate bilateral facet arthropathy. Mild disc bulge. No central canal stenosis. Mild right n euroforaminal stenosis. No left neuroforaminal stenosis. L5-S1: Moderate right, mild left facet arthropathy. No central canal stenosis. Mild right neuroforami nal stenosis. Mild left neuroforaminal stenosis. Visualized sacrum and pelvis: No abdominal aortic aneurysm. Visualized sacrum is intact. IMPRESSION: Multilevel degenerative changes of the lumbar spine, most pronounced at L5-S1, where there is mild bi lateral neuroforaminal stenosis. Reviewed by: Mercedez Strong MD on 01/10/2024 4:10 PM PDT Approved by: Mercedez Strong MD on 01/10/2024 4:10 PM PDT Station ID: [id number]
--- NOTE | 2024-01-10 16:20 | MRI Report ---
Cervical Spine WO: 01/10/2024 9:58 AM PDT CLINICAL HISTORY: 63 years of age, Female, NECK PAIN. COMPARISON: None. PROCEDURE COMMENTS: Multiplanar multisequence MR of the cervical spine was obtained without intraveno us contrast. FINDINGS: Localizer image: No visible abnormality. Alignment: Straightening of the cervical spine. Mild retrolisthesis of C5 on C6. Bone marrow: Mild fibrovascular endplate change at C5-6. Vertebrae: Vertebral body heights are well-maintained. Intervertebral discs:Multilevel disc desiccation and disc bulge. Cord: No abnormal signal. C2-C3: Posterior disc osteophyte complex. No central canal stenosis. No right neuroforaminal stenosis . No left neuroforaminal stenosis. C3-C4: Mild right facet arthropathy. No central canal stenosis. Mild right neuroforaminal stenosis. N o left neuroforaminal stenosis. C4-C5: Posterior disc identified complex. No central canal stenosis. Mild bilateral facet arthropathy . Mild right neuroforaminal stenosis. Mild left neuroforaminal stenosis. C5-C6: Posterior disc osteophyte complex, superimposed on central disc protrusion. Severe central can al stenosis. Uncovertebral and bilateral facet arthropathy. Moderate right neuroforaminal stenosis. M oderate left neuroforaminal stenosis. C6-C7: No central canal stenosis. No right neuroforaminal stenosis. No left neuroforaminal stenosis. C7-T1: No central canal stenosis. No right neuroforaminal stenosis. No left neuroforaminal stenosis. Extra-vertebral soft tissues: Unremarkable IMPRESSION: 1.Multilevel degenerative changes cervical spine, most pronounced at C5-6, where there is severe cent ral canal and moderate bilateral neuroforaminal stenosis. Reviewed by: Mercedez Strong MD on 01/10/2024 4:18 PM PDT Approved by: Mercedez Strong MD on 01/10/2024 4:18 PM PDT Station ID: [id number]
== END 2024-01-10 09:48 | disposition home or self-care (01) ==
LOC: DI 09:47
PROVIDERS: ATTEND Physician Assistant Medical
DX: M47.816 Spondylosis without myelopathy or radiculopathy, lumbar region (principal); M51.36 Other intervertebral disc degeneration, lumbar region; M48.061 Spinal stenosis, lumbar region without neurogenic claudication; M47.817 Spondylosis without myelopathy or radiculopathy, lumbosacral region; M48.07 Spinal stenosis, lumbosacral region; M50.222 Other cervical disc displacement at C5-C6 level; M47.812 Spondylosis without myelopathy or radiculopathy, cervical region